=== PATIENT | female | born 1990 | race Caucasian/White ===

== ENCOUNTER 2025-07-06 17:57 | Outpatient (REF) | payer MEDICAID, SELFPAY ==
[2025-07-08 11:47] LABS: Chlamydia Result Negative (Negative); GC Result Negative (Negative)
== END 2025-07-06 17:58 | disposition home or self-care (01) ==
LOC: LBN 17:57
PROVIDERS: Visit Provider Advanced Practice Midwife
DX: Z87.440 Personal history of urinary (tract) infections (principal); Z3A.01 Less than 8 weeks gestation of pregnancy; R30.0 Dysuria; R10.A1 Flank pain, right side
CPT/HCPCS: 87077; 87491; 87591; 87086; 87186; 87480; 87510; 87660

== ENCOUNTER 2025-07-07 15:40 | Inpatient (IN) | payer MEDICAID, SELFPAY ==
[2025-07-07 15:42] VITALS: BP 93/58; PULSE 90; RESP 16; TEMP 36.4; O2SAT 97
[2025-07-07 16:09] LABS: Abs Immature Grans 0.04 10^3/uL (0.0-0.06); HCT 35.1 % (36.0-46.0); HGB 11.8 g/dL (11.2-15.7); Immature Grans % 0.3 %; MCH 29.4 pg (27.0-33.0); MCHC 33.6 % (32.0-36.0); MCV 87 fL (80-95); MPV 10.7 fL (8.0-11.0); Platelet Count 167 10^3/uL (130-400); RBC 4.02 10^6/uL (3.93-5.22); RDW 11.9 % (11.7-14.6); RDW-SD 38.2 fL; WBC 12.30 10^3/uL (4.4-10.8)
[2025-07-07 16:14] VITALS: BP 93/58; PULSE 90; RESP 16; TEMP 36.7; O2SAT 97
--- NOTE | 2025-07-07 16:49 | W.PM.HP.N ---
Date of service: 07/07/25 Time of Service: 16:49 Assessment and Plan Assessment and plan (1) Right flank pain: Status: Acute Assessment and plan: CBC with WBC 12,000, renal US in a.m. Tylenol PRN pain and fever (2) : Status: Acute Assessment and plan: [facility] up care at [facility] (3) Pyelonephritis: Status: Acute Assessment and plan: Admit to center. Per consult with Dr Crocker., Will start ceftriaxone 1 gm IV Q 24 hours. Vital signs Q4 hours. (4) History of drug abuse in remission: Status: Acute Assessment and plan: Due to Kratom dependence. treated with Suboxone at [facility] in [place]. Suboxone 12 mg dose for tomorrow morning ordered History of Present Illness History of Present Illness Chief Complaint: riight flank pain, dysuria, fever Narrative: Lien has bene experiencing dysuria, fever and right flank pain for 3 days. She was seen at [place] urgent care and urinalysis was neg. urine culture sent and was pending. A second urinalysis at [facility] yesterday showed trace of blood. VPS pos for BV and pam and Macrobid was prescribed. preliminary urine culture was pos for e.coli and sensitivity pending. Lien was called by urgent care at [place] and told that urine culture was pos for e.coli and is sensitive to macrobid. She was instructed to call with fever. I called her this afternoon and she reported that she has been taking her temperature at home and taking tylenol PRN. She reports a fever this morning of 103.5 and 100.5 after taking tylenol. She was instructed to test for covid and that was neg. PFSH All Active Problems (Updated 07/07/25 @ 17:02 by Rosa Marquez CNM) Pyelonephritis (Acute) Hematuria (Acute) Right flank pain (Acute) Dysuria (Acute) History of drug abuse in remission (Acute) Suboxone treatment through [facility] Generalized anxiety disorder (Acute) Nicotine dependence (Acute) Marijuana use during (Acute) (Acute) Medical History (Updated 07/07/25 @ 17:02 by Rosa Marquez CNM) History of chronic urinary tract infection Benzodiazepine abuse in remission Chronic insomnia Opioid use disorder Depression Surgical History (Updated 03/15/25 @ 15:10 by Toshia Rodriguez RN) H/O removal of cyst From tailbone 2016 H/O gastric bypass 05/2024 Family History (Updated 06/10/25 @ 16:27 by Jenny Gonzalez) Other Heart disease Social History (Updated 06/10/25 @ 16:26 by Jenny Gonzalez) Smoking/Tobacco Use Status: Current every day Second Hand Exposure: Yes Smoking risk assessment performed?: Yes Substance use type: marijuana Household members: spouse and children Housing: house Sexually active: Yes Do you think of yourself as: straight/heterosexual Current gender identity: female What is your relationship status?: Panel score (0-1 are the most socially isolated patients): 1 What type of physical activity do you participate in: none Seatbelt use: always Do you feel safe at home: Yes Female Reproductive History Menstrual control method: none History History 3 Para 2 Hx # Term Pregnancies 2 Multiple births 0 Hx # Pregnancies 0 Ectopic pregnancies 0 AB induced 0 Hx Number of Living Children 2 AB spontaneous 1 Past Pregnancies Del. Date GA/Weeks # Preg Succ Route Wgt Sex Labor Lgth Anesthesia Location Prov Complic 10/23/10 41 No Yes vaginal 6 lb 14 oz Female 10 hours 07/26/20 38 No Yes vaginal 8 lb Male 10 hours Meds Allergies and Home Medications Allergies Allergy/AdvReac Type Severity Reaction Status Date / Time No Known Drug Allergies AdvReac Other (See Unverified 07/01/25 15:13 Comment) NSAIDS (Non-Steroidal AdvReac GI Bleeding Verified 07/07/25 15:54 Anti-Inflamma Home Medications Medication Instructions Recorded Confirmed Type ondansetron 8 mg disintegrating 8 mg PO Q8H PRN nausea and 07/01/25 07/06/25 Rx tablet vomiting #30 tabs buprenorphine 12 mg-naloxone 3 mg 1 film buccal Q24H 07/06/25 07/06/25 History sublingual film (Suboxone) cranberry extract 500 mg capsule 500 mg PO BID #60 caps 07/06/25 07/06/25 Rx docusate sodium 100 mg capsule 100 mg PO BID #60 caps 07/06/25 07/06/25 Rx (Colace) nitrofurantoin 100 mg PO BID #14 caps 07/06/25 07/06/25 Rx monohydrate/macrocrystals 100 mg capsule (Macrobid) fluconazole 150 mg tablet 150 mg PO DAILY #1 tab 07/07/25 Rx metronidazole 500 mg tablet 500 mg PO BID #14 tabs 07/07/25 Rx Exam Narrative Exam Narrative: afebrile Const General: cooperative and no acute distress Nutritional Appearance: average body habitus Orientation: alert Other: usig a heating pad with good effect right flank Neck Neck: normal visual inspection Thyroid: thyroid normal GI Inspection: normal to inspection Palpation: soft and nontender Back/Spine/Pelvis Back: back tenderness (pos right CVA tenderness) Skin General skin exam: no rashes or lesions noted Extrem General: normal to inspection Psych Appearance: grossly normal Speech and Movement: speech and movement normal Mood: congruent mood Results Labs 07/07/25 15:58 Labs: Laboratory Results - last 24 hr 07/07/25 15:58 WBC 12.30 H RBC 4.02 Hgb 11.8 Hct 35.1 L MCV 87 MCH 29.4 MCHC 33.6 RDW 11.9 Plt Count 167 MPV 10.7 Immature Gran % 0.3 Neutrophils % 83.0 Lymphocytes % 5.7 Monocytes % 10.8 Eosinophils % 0.0 Basophils % 0.2 Nucleated RBC % 0.0 Absolute Neutrophils 10.21 H Absolute Lymphocytes 0.70 L Absolute Monocytes 1.33 H Absolute Eosinophils 0.00 Absolute Basophils 0.02 Last Vital Signs Temp 98.1 F 07/07/25 16:14 Pulse 90 07/07/25 16:14 Resp 16 07/07/25 16:14 BP 93/58 L 07/07/25 16:14 Pulse Ox 97 07/07/25 16:14 Time Spent Time spent with Patient: <40 minutes Time was spent: preparing to see the patient(eg.review tests), obtaining and/or reviewing separately otained hiistory, ordering medications,tests, procedures, referring, communicating with other health nurse wound care, indepentently interpreting results and counseling the patient
[2025-07-07] MEDS: cefTRIAXone 1 GM/50 ML BAG IVPB (17:08)
[2025-07-07] MEDS: metroNIDAZOLE 500 MG TAB PO (20:11)
[2025-07-07] MEDS: Acetaminophen 500 MG TAB 1000 MG PO (20:18)
[2025-07-07 20:24] VITALS: BP 99/65; PULSE 120; RESP 24; TEMP 37.7; O2SAT 98
[2025-07-07] MEDS: Normal Saline Flush 10 ML SYR IVP (20:30)
[2025-07-07] MEDS: hydrOXYzine PAMOATE 25 MG CAP 50 MG PO (21:19)
[2025-07-07] MEDS: Ondansetron O.D.T. 4 MG TABEF 8 MG PO (21:20)
[2025-07-07] MEDS: Nicotine 2 MG LOZG SUC (21:20)
[2025-07-07] MEDS: Lactated Ringers 1,000 ML 100 ML IV (21:20)
[2025-07-07 23:47] VITALS: BP 93/53; PULSE 20; RESP 20; TEMP 37.1; O2SAT 99
[2025-07-08] VITALS (13 sets, daily range): BP systolic 85–102; BP diastolic 43–66; PULSE 80–98; RESP 18–20; TEMP 36.8–39.3; O2SAT 94–100
--- NOTE | 2025-07-08 | DI.US_ITS ---
Exam(s) US RENAL EXAM: US RENAL CLINICAL HISTORY: right flank pain, 9 weeks .. TECHNIQUE: Henry scale, color and spectral Doppler were used. COMPARISON: No exams were available for comparison FINDINGS: Renal size in cm: Right: 12.4. Left: 11.5. Echogenicity: Normal. Hydronephrosis: No. Cyst or mass: No. Nephrolithiasis: No. Other findings: Incidental note is made of an intrauterine gestation. movement was noted during the examination. This was not a complete evaluation. Limited images of the fetus were obtained. This was not performed for anatomy. Bladder:Normal. Ureteral jets: Right: Visualized and unremarkable. Left: Visualized and unremarkable. Prevoid vol:71 cc Postvoid vol:0 cc Renal color flow: Symmetric and within normal limits. IMPRESSION: There is no evidence of hydronephrosis. DATA REPOSITORY:
[2025-07-08] MEDS: Acetaminophen 500 MG TAB 1000 MG PO ×3 (02:33→18:44)
[2025-07-08] MEDS: Nicotine 2 MG LOZG SUC ×6 (06:42→21:22)
[2025-07-08] MEDS: Buprenorphine/Naloxone 12 mg/3 mg FILM 1 EACH SL (06:42)
[2025-07-08] MEDS: Fluconazole 150 MG TAB PO (08:19)
[2025-07-08] MEDS: metroNIDAZOLE 500 MG TAB PO (08:19)
[2025-07-08] MEDS: Lactated Ringers 1,000 ML 150 ML IV ×2 (11:44→19:48)
--- NOTE | 2025-07-08 13:02 | PGE_ITS ---
Date of Service Date of service: 07/08/25 Time of Service: 13:02 Assessment and Plan Assessment and plan (1) Pyelonephritis: Status: Acute Assessment and plan: I discussed the importance of continued observation and antibiotic therapy. Lien verbalized understanding and has arranged for childcare for her children. Will plan continued cephtriaxone administration, tylenol for pain and fever. Nicotine lozenges increased in frequency to 2 hours per patient request. Pain relief with tylenol and vistaril for sleep tonight PRN. repeat CBC with diff with lactate this evening. We discussed discontinuing the IV fluids at this time unless sh is unable to take PO fluids well and she agrees. (2) : Status: Acute Assessment and plan: Plan reviewed with Dr. Winter who agrees. Care will be assumed at 5 PM by Ines Cai CNM Subjective Subjective Patient reports: no new complaints, still having pain and fever Interval history since last seen: Lien reports that right flank pain has improved but is still present. Renal US shows no evidence of stones or hydronephrosis. She slept fairly well and and her pain was managed well with tylenol and vistaril overnight. She requested nicotine lozenges more frequently than Q 4 hours. She received a 500 cc bolus of LR last night followed by 200cc / hr. infusion. Lien is taking po fluids well. Exam Const General: cooperative Orientation: alert Neck Neck: normal visual inspection Resp Effort & Inspection: normal respiratory effort Auscultation: clear to auscultation bilaterally Cardio Rate: regular rate Rhythm: regular rhythm Heart Sounds: no murmurs Skin Lesions: no lesions Rashes: no rashes Extrem General: normal to inspection Psych Appearance: well kempt Mental Status: mental status grossly normal Speech and Movement: speech and movement normal Mood: congruent mood Affect: labile affect (tearful about concern for her children's care while she is hospitalized. ) Objective Last Vital Signs Temp 102.8 F H 07/08/25 11:35 Pulse 98 H 07/08/25 11:35 Resp 18 07/08/25 07:00 BP 102/66 07/08/25 11:35 Pulse Ox 98 07/08/25 11:35 Laboratory Results - last 24 hr 07/07/25 07/07/25 15:58 16:41 WBC 12.30 H RBC 4.02 Hgb 11.8 Hct 35.1 L MCV 87 MCH 29.4 MCHC 33.6 RDW 11.9 Plt Count 167 MPV 10.7 Immature Gran % 0.3 Neutrophils % 83.0 Lymphocytes % 5.7 Monocytes % 10.8 Eosinophils % 0.0 Basophils % 0.2 Nucleated RBC % 0.0 Absolute Neutrophils 10.21 H Absolute Lymphocytes 0.70 L Absolute Monocytes 1.33 H Absolute Eosinophils 0.00 Absolute Basophils 0.02 COVID-19 Source Cancelled SARS-CoV-2 (PCR) Cancelled Reviewed Pertinent PMH: Yes Objective Narrative Objective Narrative: Most recent temp 102.8 Time Spent with Patient Time Spent with Patient: 25-34 minutes Time was spent: preparing to see the patient(eg.review tests), obtaining and/or reviewing separately otained hiistory, ordering medications,tests, procedures, referring, communicating with other health patient centered care specialist, indepentently interpreting results and counseling the patient
[2025-07-08] MEDS: cefTRIAXone 1 GM/50 ML BAG IVPB (16:00)
[2025-07-08 17:33] LABS: Abs Immature Grans 0.03 10^3/uL (0.0-0.06); HCT 35.5 % (36.0-46.0); HGB 12.0 g/dL (11.2-15.7); Immature Grans % 0.3 %; MCH 29.6 pg (27.0-33.0); MCHC 33.8 % (32.0-36.0); MCV 88 fL (80-95); MPV 10.7 fL (8.0-11.0); Platelet Count 178 10^3/uL (130-400); RBC 4.05 10^6/uL (3.93-5.22); RDW 12.0 % (11.7-14.6); RDW-SD 39.0 fL; WBC 9.37 10^3/uL (4.4-10.8)
--- NOTE | 2025-07-08 18:54 | W.OBCONSULT ---
Date of service: 07/08/25 Time of Service: 18:54 Assessment and Plan Assessment and plan (1) 9 weeks gestation of : Status: Acute Assessment and plan: 34 yo ( x2) at 9 wks as dated by LMP equal to 8 wk US (NADIR: 02/09/2025) - HD 1 for treatment of pyelonephritis - labs not yet collected - further complicated by h/o gastric bypass, THC use, nicotine use, Suboxone use (h/o Kratom use), anxiety / depression, and now pyelonephritis - Genetic screening / Maternal screening pending - Anatomy US pending - Tdap / flu / COVID / RSV vaccines pending - pending - Contraception planning pending (2) Pyelonephritis affecting : Status: Acute Assessment and plan: Patient had 1g Ceftriaxone last night. While her dysuria has improved and her white count has decreased, she has had multiple fevers throughout the day including recently. On physical assessment in the room, the patient is noted to be clammy; however, patient also has a large hot pack on her back reportedly being used for pain control. We discussed discontinuing the hot pack and replacing it with a cold pack. Given her breaking through on ceftriaxone we would just need her ceftriaxone and switch her over to ampicillin and gentamicin. To decrease the amount of systemic antibiotic exposure, her oral metronidazole will be switched to vaginal metronidazole for the treatment of her BV. We will repeat a CBC as well as a creatinine in the morning. Patient has been urinating throughout the day but urine does appear concentrated and she has had approximately 30 to 50 cc out an hour. We discussed increasing oral intake and running fluids overnight. (3) History of drug abuse in remission: Status: Acute Assessment and plan: Patient reports she currently uses Suboxone; continue current dosing while in-patient (4) Previous gastric bypass affecting in first trimester, antepartum: Status: Acute Assessment and plan: Patient reports full [place] in May of last year. (5) Nicotine dependence: Status: Acute Assessment and plan: Reports well controlled while in-patient on Nicotine lozenges (6) Generalized anxiety disorder: Status: Acute Assessment and plan: Well controlled unmedicated (7) Bacterial vaginosis: Status: Acute Assessment and plan: 0.75% Metrogel 1 rigo full nightly x 5 days History of Present Illness Narrative: 34 yo ( x2) at 9 17 as dated by LMP equal to 8 wk US (NADIR 02/09/2025) consulted to our services for assistance with management of pyelonephritis. Patient presented last night with complaints of right sided flank pain and fevers. Review of Systems All systems reviewed & are unremarkable except as noted in HPI and below PFSH All Active Problems (Updated 07/08/25 @ 19:06 by Tenisha Winter DO) 9 weeks gestation of (Acute) Bacterial vaginosis (Acute) Pyelonephritis affecting (Acute) Previous gastric bypass affecting in first trimester, antepartum (Acute) Pyelonephritis (Acute) Hematuria (Acute) Right flank pain (Acute) Dysuria (Acute) History of drug abuse in remission (Acute) Suboxone treatment through [facility] Generalized anxiety disorder (Acute) Nicotine dependence (Acute) Marijuana use during (Acute) (Acute) Medical History History of chronic urinary tract infection Benzodiazepine abuse in remission Chronic insomnia Opioid use disorder Depression Surgical History H/O removal of cyst From [facility] 2016 H/O gastric bypass 05/2024 Family History Other Heart disease Social History Smoking/Tobacco Use Status: Current every day Second Hand Exposure: Yes Smoking risk assessment performed?: Yes Substance use type: marijuana Household members: spouse and children Housing: house Sexually active: Yes Do you think of yourself as: straight/heterosexual Current gender identity: female What is your relationship status?: Panel score (0-1 are the most socially isolated patients): 1 What type of physical activity do you participate in: none Seatbelt use: always Do you feel safe at home: Yes Female Reproductive History Menstrual control method: none History History 3 Para 2 Hx # Term Pregnancies 2 Multiple births 0 Hx # Pregnancies 0 Ectopic pregnancies 0 AB induced 0 Hx Number of Living Children 2 AB spontaneous 1 Past Pregnancies Del. Date GA/Weeks # Preg Succ Route Wgt Sex Labor Lgth Anesthesia Location Prov Complic 10/23/10 41 No Yes vaginal 6 lb 14 oz Female 10 hours 07/26/20 38 No Yes vaginal 8 lb Male 10 hours Exam Narrative Exam Narrative: General: Well nourished female, fatigued Pulm: No overt respiratory distress Abd: soft, non-distended, non-tender; no flank tenderness Ext: No swelling Psych: Appropriate, cooperative Results Last Vital Signs Temp 100.2 F H 07/08/25 18:44 Pulse 90 07/08/25 17:30 Resp 20 07/08/25 16:06 BP 99/63 L 07/08/25 17:30 Pulse Ox 98 07/08/25 17:30 Labs 07/08/25 17:19 07/08/25 22:04 Labs: Laboratory Results - last 24 hr 07/08/25 17:19 WBC 9.37 RBC 4.05 Hgb 12.0 Hct 35.5 L MCV 88 MCH 29.6 MCHC 33.8 RDW 12.0 Plt Count 178 MPV 10.7 Immature Gran % 0.3 Neutrophils % 73.7 Lymphocytes % 14.6 Monocytes % 11.0 Eosinophils % 0.2 Basophils % 0.2 Nucleated RBC % 0.0 Absolute Neutrophils 6.90 H Absolute Lymphocytes 1.37 Absolute Monocytes 1.03 H Absolute Eosinophils 0.02 Absolute Basophils 0.02 VBG Lactate 1.2
[2025-07-08] MEDS: AMPICILLIN SODIUM 2 GM in Normal Saline 100 ML IVPB (20:13)
[2025-07-08] MEDS: Normal Saline Flush 10 ML SYR IVP (20:13)
[2025-07-08] MEDS: hydrOXYzine PAMOATE 25 MG CAP 50 MG PO (21:22)
[2025-07-08] MEDS: METRONIDAZOLE 0.75% VG (22:13)
[2025-07-08] MEDS: GENTAMICIN 180 MG in Normal Saline 100 ML 100 MG IVPB (22:38)
--- NOTE | 2025-07-08 22:47 | W.PM.HP.N ---
PFS All Active Problems (Updated 07/08/25 @ 19:06 by Tenisha Winter DO) 9 weeks gestation of (Acute) Bacterial vaginosis (Acute) Pyelonephritis affecting (Acute) Previous gastric bypass affecting in first trimester, antepartum (Acute) Pyelonephritis (Acute) Hematuria (Acute) Right flank pain (Acute) Dysuria (Acute) History of drug abuse in remission (Acute) Suboxone treatment through [facility] Generalized anxiety disorder (Acute) Nicotine dependence (Acute) Marijuana use during (Acute) (Acute) Medical History History of chronic urinary tract infection Benzodiazepine abuse in remission Chronic insomnia Opioid use disorder Depression Surgical History H/O removal of cyst [facility] H/O gastric bypass 05/2024 Family History Other Heart disease Social History Smoking/Tobacco Use Status: Current every day Second Hand Exposure: Yes Smoking risk assessment performed?: Yes Substance use type: marijuana Household members: spouse and children Housing: house Sexually active: Yes Do you think of yourself as: straight/heterosexual Current gender identity: female What is your relationship status?: Panel score (0-1 are the most socially isolated patients): 1 What type of physical activity do you participate in: none Seatbelt use: always Do you feel safe at home: Yes Female Reproductive History Menstrual control method: none History History 3 Para 2 Hx # Term Pregnancies 2 Multiple births 0 Hx # Pregnancies 0 Ectopic pregnancies 0 AB induced 0 Hx Number of Living Children 2 AB spontaneous 1 Past Pregnancies Del. Date GA/Weeks # Preg Succ Route Wgt Sex Labor Lgth Anesthesia Location Prov Complic 10/23/10 41 No Yes vaginal 6 lb 14 oz Female 10 hours 07/26/20 38 No Yes vaginal 8 lb Male 10 hours Meds Allergies and Home Medications Allergies Allergy/AdvReac Type Severity Reaction Status Date / Time No Known Drug Allergies AdvReac Other (See Unverified 07/01/25 15:13 Comment) NSAIDS (Non-Steroidal AdvReac GI Bleeding Verified 07/07/25 15:54 Anti-Inflamma Home Medications Medication Instructions Recorded Confirmed Type ondansetron 8 mg disintegrating 8 mg PO Q8H PRN nausea and 07/01/25 07/06/25 Rx tablet vomiting #30 tabs buprenorphine 12 mg-naloxone 3 mg 1 film buccal Q24H 07/06/25 07/06/25 History sublingual film (Suboxone) cranberry extract 500 mg capsule 500 mg PO BID #60 caps 07/06/25 07/06/25 Rx docusate sodium 100 mg capsule 100 mg PO BID #60 caps 07/06/25 07/06/25 Rx (Colace) nitrofurantoin 100 mg PO BID #14 caps 07/06/25 07/06/25 Rx monohydrate/macrocrystals 100 mg capsule (Macrobid) fluconazole 150 mg tablet 150 mg PO DAILY #1 tab 07/07/25 Rx metronidazole 500 mg tablet 500 mg PO BID #14 tabs 07/07/25 Rx Results Labs 07/08/25 17:19 07/08/25 22:04 Labs: Laboratory Results - last 24 hr 07/08/25 07/08/25 17:19 22:04 WBC 9.37 RBC 4.05 Hgb 12.0 Hct 35.5 L MCV 88 MCH 29.6 MCHC 33.8 RDW 12.0 Plt Count 178 MPV 10.7 Immature Gran % 0.3 Neutrophils % 73.7 Lymphocytes % 14.6 Monocytes % 11.0 Eosinophils % 0.2 Basophils % 0.2 Nucleated RBC % 0.0 Absolute Neutrophils 6.90 H Absolute Lymphocytes 1.37 Absolute Monocytes 1.03 H Absolute Eosinophils 0.02 Absolute Basophils 0.02 VBG Lactate 1.2 Creatinine 0.6 Est GFR (CKD-EPI 2020) 120.72 Last Vital Signs Temp 98.2 F 07/08/25 20:56 Pulse 80 07/08/25 20:56 Resp 18 07/08/25 20:56 BP 91/54 L 07/08/25 20:56 Pulse Ox 94 07/08/25 20:56
[2025-07-09] VITALS: TEMP 36.6
[2025-07-09] MEDS: Normal Saline Flush 10 ML SYR IVP (02:08)
[2025-07-09] MEDS: AMPICILLIN SODIUM 2 GM in Normal Saline 100 ML IVPB ×3 (02:09→15:30)
[2025-07-09 02:14] VITALS: BP 88/52; TEMP 36.8
[2025-07-09] MEDS: GENTAMICIN 100 MG in Normal Saline 100 ML IVPB ×2 (04:02→16:00)
[2025-07-09] MEDS: Nicotine 2 MG LOZG SUC ×3 (04:08→14:53)
[2025-07-09 05:33] VITALS: BP 99/63; PULSE 85; TEMP 37.1; O2SAT 98
[2025-07-09 06:36] LABS: Abs Immature Grans 0.02 10^3/uL (0.0-0.06); HCT 31.0 % (36.0-46.0); HGB 10.7 g/dL (11.2-15.7); Immature Grans % 0.3 %; MCH 29.7 pg (27.0-33.0); MCHC 34.5 % (32.0-36.0); MCV 86 fL (80-95); MPV 11.0 fL (8.0-11.0); Platelet Count 148 10^3/uL (130-400); RBC 3.60 10^6/uL (3.93-5.22); RDW 12.1 % (11.7-14.6); RDW-SD 38.2 fL; WBC 6.17 10^3/uL (4.4-10.8)
[2025-07-09] MEDS: Buprenorphine/Naloxone 12 mg/3 mg FILM 1 EACH SL (08:24)
[2025-07-09] MEDS: Fluconazole 150 MG TAB PO (08:28)
[2025-07-09] MEDS: METRONIDAZOLE 0.75% VG (08:30)
[2025-07-09] MEDS: Acetaminophen 500 MG TAB 1000 MG PO ×2 (08:33→14:56)
[2025-07-09 08:48] VITALS: BP 95/54; PULSE 89; RESP 16; TEMP 36.9; O2SAT 97
--- NOTE | 2025-07-09 08:50 | W.PM.PROGNOT ---
Date of Service Date of service: 07/09/25 Time of Service: 08:45 Assessment and Plan Assessment and plan (1) Pyelonephritis affecting : Status: Acute Assessment and plan: A: collaborative CNM/medical management, amp/gent orders written by Dr. Winter afebrile for >12 hrs, flank pain slowly diminishing WBC this morning @ 6.17, nml lactate appetite improving, voiding qs, pt in good spirits P: MD likely to discharge pt this afternoon Will begin daily prophylaxis ATB Requested work note through 07/11 (printed & given) Pt has [facility] appt Friday, initial OB appt 07/25 Additional f/up per MD recommendation Subjective Subjective Interval history since last seen: Pt states she feels well this morning, increased appetite, no fever since yesterday afternoon after antibiotics were changed to amp/gent, right flank pain still persists though lower intensity at 4 on scale of 10, controlled with tylenol. Exam Const General: cooperative, healthy appearing, comfortable and no acute distress Nutritional Appearance: average body habitus and well nourished Orientation: alert, awake and oriented x3 Resp Effort & Inspection: normal respiratory effort and able to speak in complete sentences Cardio Rate: regular rate Rhythm: regular rhythm Back/Spine/Pelvis Other: RCVAT is noted Extrem General: normal to inspection and full ROM Psych Mood: congruent mood Affect: normal affect Attitude: cooperative Thought Process: normal Objective Last Vital Signs Temp 98.4 F 07/09/25 08:48 Pulse 89 07/09/25 08:48 Resp 16 07/09/25 08:48 BP 95/54 L 07/09/25 08:48 Pulse Ox 97 07/09/25 08:48 Laboratory Results - last 24 hr 07/08/25 07/08/25 07/09/25 17:19 22:04 05:55 WBC 9.37 6.17 RBC 4.05 3.60 L Hgb 12.0 10.7 L Hct 35.5 L 31.0 L MCV 88 86 MCH 29.6 29.7 MCHC 33.8 34.5 RDW 12.0 12.1 Plt Count 178 148 MPV 10.7 11.0 Immature Gran % 0.3 0.3 Neutrophils % 73.7 72.6 Lymphocytes % 14.6 13.9 Monocytes % 11.0 12.6 Eosinophils % 0.2 0.3 Basophils % 0.2 0.3 Nucleated RBC % 0.0 0.0 Absolute Neutrophils 6.90 H 4.47 Absolute Lymphocytes 1.37 0.86 L Absolute Monocytes 1.03 H 0.78 Absolute Eosinophils 0.02 0.02 Absolute Basophils 0.02 0.02 VBG Lactate 1.2 Creatinine 0.6 0.6 Est GFR (CKD-EPI 2020) 120.72 120.72 Time Spent with Patient Time Spent with Patient: 35-49 minutes Time was spent: preparing to see the patient(eg.review tests), obtaining and/or reviewing separately otained hiistory, referring, communicating with other health pharmacy care coordinator and counseling the patient
--- NOTE | 2025-07-09 13:05 | PGE_ITS ---
Date of Service Date of service: 07/09/25 Time of Service: 13:05 Assessment and Plan Assessment and plan (1) Pyelonephritis affecting : Status: Acute Assessment and plan: 07/08/2025 (Maggy): Patient had 1g Ceftriaxone last night. While her dysuria has improved and her white count has decreased, she has had multiple fevers throughout the day including recently. On physical assessment in the room, the patient is noted to be clammy; however, patient also has a large hot pack on her back reportedly being used for pain control. We discussed discontinuing the hot pack and replacing it with a cold pack. Given her breaking through on ceftriaxone we would just need her ceftriaxone and switch her over to ampicillin and gentamicin. To decrease the amount of systemic antibiotic exposure, her oral metronidazole will be switched to vaginal metronidazole for the treatment of her BV. We will repeat a CBC as well as a creatinine in the morning. Patient has been urinating throughout the day but urine does appear concentrated and she has had approximately 30 to 50 cc out an hour. We discussed increasing oral intake and running fluids overnight. 07/09/2025 (Maggy): Patient exhibits notable improvement since switching from ceftriaxone to ampicillin and gentamicin. Her white count continues to downtrend, she has been afebrile since 6 PM last night, and she physically appears notably improved from yesterday. Patient states this morning that she, did not realize how sick [she] was until [she] felt better today. UOP has been notably improved this AM with well over 100 cc's an hour. Fluids saline locked. I would think d/c at 24 hours afebrile is appropriate. Will send in PO home treatment for 1 week (Augmentin 875 BID x 10 days) with initiation of prophylaxis (500 mg Keflex QD) after this. Subjective Subjective Interval history since last seen: Patient found to be doing well this morning; reports considerable improvement. Exam Narrative Exam Narrative: General: Well-nourished female in no immediate distress Pulmonary: No overt respiratory distress Abdomen: Soft, nontender, nondistended Extremities patient in very good spirits; cooperative no swelling Objective Last Vital Signs Temp 98.4 F 07/09/25 08:48 Pulse 89 07/09/25 08:48 Resp 16 07/09/25 08:48 BP 95/54 L 07/09/25 08:48 Pulse Ox 97 07/09/25 08:48 Laboratory Results - last 24 hr 07/08/25 07/08/25 07/09/25 17:19 22:04 05:55 WBC 9.37 6.17 RBC 4.05 3.60 L Hgb 12.0 10.7 L Hct 35.5 L 31.0 L MCV 88 86 MCH 29.6 29.7 MCHC 33.8 34.5 RDW 12.0 12.1 Plt Count 178 148 MPV 10.7 11.0 Immature Gran % 0.3 0.3 Neutrophils % 73.7 72.6 Lymphocytes % 14.6 13.9 Monocytes % 11.0 12.6 Eosinophils % 0.2 0.3 Basophils % 0.2 0.3 Nucleated RBC % 0.0 0.0 Absolute Neutrophils 6.90 H 4.47 Absolute Lymphocytes 1.37 0.86 L Absolute Monocytes 1.03 H 0.78 Absolute Eosinophils 0.02 0.02 Absolute Basophils 0.02 0.02 VBG Lactate 1.2 Creatinine 0.6 0.6 Est GFR (CKD-EPI 2020) 120.72 120.72 Time Spent with Patient Time Spent with Patient: 35-49 minutes Time was spent: preparing to see the patient(eg.review tests), obtaining and/or reviewing separately otained hiistory, ordering medications,tests, procedures and referring, communicating with other health childcare director
[2025-07-09 16:00] VITALS: BP 102/68; PULSE 65; RESP 67; TEMP 36.6; O2SAT 97
--- NOTE | 2025-07-09 17:25 | NUR.NOTE ---
Nursing Note:VSS, Pt tolerating regular diet. Pt rates pain 2/10. Partner is here to take her home. Gent. Pean just drawn by lab. Dr Brandon going to see pt to discharge soon.
--- NOTE | 2025-07-09 17:29 | DSE_ITS ---
Date of service: 07/09/25 Time of Service: 17:30 DS: Diagnosis Discharge Diagnosis (1) Pyelonephritis affecting : Status: Acute Discharge Plan Disposition Patient Disposition: Home Condition: Improving Discharge Details Reason For Visit: Pyelonephritis Admit Date/Time: 07/07/25 15:40 Admit Provider: Rosa Marquez Attending Provider: Rosa Marquez Primary Care Provider: Unknown,Unknown Hospital Course Hospital Course: Pt admitted for evaluation and parenteral antibiotic treatment of pylonephritis in first trimester , initial response to medication was with improvement but at 24 hours pt spiked a fever again so antibiotics where changed and pt has remained afebrile for 24 hrs, lab indicators show improvement and pt meets criteria for discharge this evening. She will continue management on oral antibiotics and have follow up visits at 7 days post discharge. She will continue care as planned. Home Meds and New Rx's Prescriptions: New amoxicillin-pot clavulanate 875-125 mg tablet 1 tab PO Q12H 10 Days Qty: 20 0RF cephalexin 500 mg capsule 500 mg PO DAILY 90 Days Qty: 90 3RF metronidazole [Vandazole] 0.75 % (37.5mg/5 gram) gel 1 appful vaginal DAILY 5 Days Qty: 70 0RF No Action docusate sodium [Colace] 100 mg capsule 100 mg PO BID Qty: 60 8RF cranberry extract 500 mg capsule 500 mg PO BID Qty: 60 0RF Rx Instructions: administer with meals buprenorphine-naloxone [Suboxone] 12-3 mg film 1 film buccal Q24H ondansetron 8 mg tablet,disintegrating 8 mg PO Q8H PRN (Reason: nausea and vomiting) Qty: 30 5RF Discharge Instructions Stand Alone Forms: Portal Information Activity:: Activity as Tolerated Equipment/Supplies:: No Equipment Needed Diet:: Normal Diet Discharge Orders Discharge Orders: Discharge Order (Routine); Ordered 07/09/25 Ordered By: Cristina Cai OB:DS Summary Contraception Discussed Contraception Discussed: No (undelivered), Status at Discharge Functional status at discharge: independent ambulation Overall status at discharge: patient is progressing back to baseline Mental Status: mental status grossly normal Speech and Movement: speech and movement normal Mood: congruent mood Affect: normal affect and labile affect (tearful about concern for her children's care while she is hospitalized. ) Quality:SDOH Health Related Social Needs: Health related social needs house/econ circumstance lo olivia/isolated Health related social needs details none Health related social needs details: none Exam Physical Exam Vital signs: Temp Pulse Resp BP Pulse Ox 98 F 65 67 H 102/68 97 07/09/25 16:00 07/09/25 16:00 07/09/25 16:00 07/09/25 16:00 07/09/25 16:00 Vital Signs Reviewed: Yes Constitutional Constitutional: no acute distress and average body habitus Respiratory Exam Respiratory Exam: Normal Cardiovascular Exam Cardiovascular Exam: Normal Exam Patient deferred: external exam Extremities Exam Extremity Exam: Normal, Full ROM and Warm to Touch Back/Spine/Pelvis Exam Back Exam: Normal (mild RCVAT noted) Neurological Exam Neurological Exam: Normal Psychiatric Exam Psychiatric Exam: Normal Additional findings Additional findings: 34 yo ( x2) at 9 09/07 as dated by LMP equal to 8 wk US (NADIR 02/09/2025) consulted to our services for assistance with management of pyelonephritis. Patient presented last night with complaints of right sided flank pain and fevers. PFSH All Active Problems (Updated 07/09/25 @ 11:00 by Cristina Cai) 9 weeks gestation of (Acute) Bacterial vaginosis (Acute) Pyelonephritis affecting (Acute) Previous gastric bypass affecting in first trimester, antepartum (Acute) Pyelonephritis (Acute) Hematuria (Acute) Right flank pain (Acute) Dysuria (Acute) History of drug abuse in remission (Acute) Suboxone treatment through [facility] Generalized anxiety disorder (Acute) Nicotine dependence (Acute) Marijuana use during (Acute) (Acute) Medical History History of chronic urinary tract infection Benzodiazepine abuse in remission Chronic insomnia Opioid use disorder Depression Surgical History H/O removal of cyst From tailbone 2016 H/O gastric bypass 05/2024 Family History Other Heart disease Social History Smoking/Tobacco Use Status: Current every day Second Hand Exposure: Yes Smoking risk assessment performed?: Yes Substance use type: marijuana Household members: spouse and children Housing: house Sexually active: Yes Do you think of yourself as: straight/heterosexual Current gender identity: female What is your relationship status?: Panel score (0-1 are the most socially isolated patients): 1 What type of physical activity do you participate in: none Seatbelt use: always Do you feel safe at home: Yes Female Reproductive History Menstrual control method: none History History 3 Para 2 Hx # Term Pregnancies 2 Multiple births 0 Hx # Pregnancies 0 Ectopic pregnancies 0 AB induced 0 Hx Number of Living Children 2 AB spontaneous 1 Past Pregnancies Del. Date GA/Weeks # Preg Succ Route Wgt Sex Labor Lgth Anesth esia Location [facility] 10/23/10 41 No Yes vaginal 6 lb 14 oz Female 10 hours 07/26/20 38 No Yes vaginal 8 lb Male 10 hours DS: Data Vitals/I&O Vitals and I&O: Vital Signs Temperature 98 F 07/09/25 16:00 Temperature Source Oral 07/09/25 16:00 Pulse 65 07/09/25 16:00 Pulse Rhythm Regular 07/09/25 08:48 Respiratory Rate 67 H 07/09/25 16:00 Respiratory Effort Normal 07/07/25 16:14 Respiratory Depth Normal 07/07/25 16:14 Respiratory Pattern Normal 07/07/25 16:14 Blood Pressure 102/68 07/09/25 16:00 Blood Pressure Mean 79 07/09/25 16:00 Pulse Oximetry 97 07/09/25 16:00 Oxygen Delivery Method Room Air 07/07/25 16:14 Oxygen Flow Rate 0 07/07/25 16:14 Pain Level 2 07/09/25 15:56 Intake & Output 07/08/25 07/09/25 07/09/25 23:59 11:59 23:59 Intake Total 445 / 1695 2217.0 / 2217.0 Output Total 1500 / 2500 3000 / 4400 1400 / 4400 Balance -1055 / -805 -783.0 / -2183.0 -1400 / -2183.0 Intake: IV 445 / 1195 927.0 / 927.0 Oral 1290 / 1290 Output: Urine 1500 / 2500 3000 / 4400 1400 / 4400 Other: Urine Color Yellow Yellow Urine Appearance Clear Cloudy Urine Odor None None Strain Urine Result Negative-No Stones/Gravel Mucus Only Negative-No Stones/Gravel Data Completed and Pending Pending Labs at Discharge: 07/07/25 07/07/25 07/08/25 15:58 16:41 17:19 WBC 12.30 H 9.37 RBC 4.02 4.05 Hgb 11.8 12.0 Hct 35.1 L 35.5 L MCV 87 88 MCH 29.4 29.6 MCHC 33.6 33.8 RDW 11.9 12.0 Plt Count 167 178 MPV 10.7 10.7 Immature Gran % 0.3 0.3 Neutrophils % 83.0 73.7 Lymphocytes % 5.7 14.6 Monocytes % 10.8 11.0 Eosinophils % 0.0 0.2 Basophils % 0.2 0.2 Nucleated RBC % 0.0 0.0 Absolute Neutrophils 10.21 H 6.90 H Absolute Lymphocytes 0.70 L 1.37 Absolute Monocytes 1.33 H 1.03 H Absolute Eosinophils 0.00 0.02 Absolute Basophils 0.02 0.02 VBG Lactate 1.2 Creatinine Est GFR (CKD-EPI 2020) Gentamicin Peak Gentamicin Trough Gentamicin Draw Type COVID-19 Source Cancelled SARS-CoV-2 (PCR) Cancelled 07/08/25 07/09/25 07/09/25 22:04 05:55 17:15 WBC 6.17 RBC 3.60 L Hgb 10.7 L Hct 31.0 L MCV 86 MCH 29.7 MCHC 34.5 RDW 12.1 Plt Count 148 MPV 11.0 Immature Gran % 0.3 Neutrophils % 72.6 Lymphocytes % 13.9 Monocytes % 12.6 Eosinophils % 0.3 Basophils % 0.3 Nucleated RBC % 0.0 Absolute Neutrophils 4.47 Absolute Lymphocytes 0.86 L Absolute Monocytes 0.78 Absolute Eosinophils 0.02 Absolute Basophils 0.02 VBG Lactate Creatinine 0.6 0.6 Est GFR (CKD-EPI 2020) 120.72 120.72 Gentamicin Peak Pending Gentamicin Trough Gentamicin Draw Type Pending COVID-19 Source SARS-CoV-2 (PCR) 07/09/25 19:00 WBC RBC Hgb Hct MCV MCH MCHC RDW Plt Count MPV Immature Gran % Neutrophils % Lymphocytes % Monocytes % Eosinophils % Basophils % Nucleated RBC % Absolute Neutrophils Absolute Lymphocytes Absolute Monocytes Absolute Eosinophils Absolute Basophils VBG Lactate Creatinine Est GFR (CKD-EPI 2020) Gentamicin Peak Gentamicin Trough Pending Gentamicin Draw Type Pending COVID-19 Source SARS-CoV-2 (PCR)
--- NOTE | 2025-07-09 18:27 | NUR.NOTE ---
Nursing Note: reviewed meds sent to pharmacy and follow up appointment to be made on Friday. IV removed tip intact and pt tolerated well. Pt denied questions. Discharged ambulatory with Partner.
[2025-07-10 16:57] LABS: Gentamicin Peak 3.7 ug/mL (5.0-12.0); Type of Draw Not Given
== END 2025-07-09 18:28 | disposition home or self-care (01) | DRG 832 ==
PROVIDERS: Obstetrics & Gynecology; Admitting Provider Advanced Practice Midwife; Visit Provider Advanced Practice Midwife
DX: O23.01 Infections of kidney in pregnancy, first trimester (principal); O99.321 Drug use complicating pregnancy, first trimester; F19.21 Other psychoactive substance dependence, in remission; F13.11 Sedative, hypnotic or anxiolytic abuse, in remission; F32.A Depression, unspecified; F17.210 Nicotine dependence, cigarettes, uncomplicated; F41.1 Generalized anxiety disorder; O99.841 Bariatric surgery status complicating pregnancy, first trimester; O99.341 Other mental disorders complicating pregnancy, first trimester; R10.A1 Flank pain, right side; O99.331 Smoking (tobacco) complicating pregnancy, first trimester; F12.90 Cannabis use, unspecified, uncomplicated; O23.591 Infection of other part of genital tract in pregnancy, first trimester; B96.20 Unspecified Escherichia coli [E. coli] as the cause of diseases classified elsewhere
CPT/HCPCS: 36415; 76770; 80170; 87635; 96360; 96361; 96365; 96366; 82565; 83605; 85025; 87081; G0378; J0290; J0696; J1580

== ENCOUNTER 2025-07-25 03:57 | Outpatient (CLI) | payer MEDICAID, SELFPAY ==
[2025-07-25 15:37] LABS: Abs Immature Grans 0.02 10^3/uL (0.0-0.06); HCT 33.8 % (36.0-46.0); HGB 11.5 g/dL (11.2-15.7); Immature Grans % 0.3 %; MCH 30.3 pg (27.0-33.0); MCHC 34.0 % (32.0-36.0); MCV 89 fL (80-95); MPV 10.1 fL (8.0-11.0); Platelet Count 229 10^3/uL (130-400); RBC 3.80 10^6/uL (3.93-5.22); RDW 12.9 % (11.7-14.6); RDW-SD 41.9 fL; WBC 7.48 10^3/uL (4.4-10.8)
[2025-07-25 23:56] LABS: HIV-1/2 Ag & Ab Screen Negative (Negative)
[2025-07-25 23:57] LABS: Hepatitis C Ab w Rflx HCV PCR Negative (Negative)
[2025-07-26 10:44] LABS: Rubella IgG Ab (UVM) Negative (See Note)
[2025-07-29 16:54] LABS: Syphilis IgG w/Reflex Nonreactive (Nonreactive)
== END 2025-07-25 03:58 | disposition home or self-care (01) ==
LOC: LBO 03:57
PROVIDERS: Visit Provider Advanced Practice Midwife
DX: Z34.91 Encounter for supervision of normal pregnancy, unspecified, first trimester (principal)
CPT/HCPCS: 36415; 81220; 81222; 86787; 86803; 86850; 86900; 86901; 87340; 87389; 85025; 86762; 86780

== ENCOUNTER 2025-07-25 14:35 | Outpatient (REF) | payer MEDICAID, SELFPAY ==
--- NOTE | 2025-07-25 14:30 | PAPFT_PTH ---
PATIENT: Christina Curtis LOC: [facility] U#:[id number] AGE/SX: 34/F ROOM: RE07/25/[address]: Rosa Marquez : 1990 BED: DIS: 07/25/2025 SPEC #: [id number] RECD: 07/25/25 18:08 STATUS: [facility] REQ #: [id number] [place]: 07/25/25 14:[address]: Rosa Marquez DEPT: [facility] Cytology RECD BY: Raquel Riggs ENTERED: 07/25/25 18:08 SP TYPE: PAPFT OTHR DR: Unknown,Unknown Tissues: 1 - CX/ENDOCX FOR PAP SMEARS Procedures: PAP THIN PREP/UVM Screening HPV DNA PROBE Comments: (HPV 16 & 18/45) (CHLAMYDIA/GC)
[2025-07-25 17:36] LABS: Cannabinoids THC Positive (Negative); Fentanyl Scr w/Rflx to Conf, U Negative (Negative)
[2025-07-26 12:48] LABS: Chlamydia Result Negative (Negative); GC Result Negative (Negative)
== END 2025-07-25 14:36 | disposition home or self-care (01) ==
LOC: LBN 14:35
PROVIDERS: Visit Provider Advanced Practice Midwife
DX: N76.0 Acute vaginitis; B96.89 Other specified bacterial agents as the cause of diseases classified elsewhere; Z12.4 Encounter for screening for malignant neoplasm of cervix; Z34.91 Encounter for supervision of normal pregnancy, unspecified, first trimester
CPT/HCPCS: 80307; 80348; 87491; 87591; 88142; 87086; 87480; 87510; 87624; 87660

== ENCOUNTER 2025-08-24 13:15 | Outpatient (CLI) | payer MEDICAID, SELFPAY ==
[2025-08-24 14:17] LABS: Vitamin D 25 Total 57 ng/mL (30-100)
[2025-08-24 14:34] LABS: Calcium 8.6 mg/dL (8.3-10.6)
[2025-08-24 14:38] LABS: Iron 111 ug/dL (50-170)
[2025-08-24 14:39] LABS: Vitamin B12 234 pg/mL (211-911)
[2025-08-24 14:40] LABS: Ferritin 74 ng/mL (7-271); Folate 9.5 ng/mL (>5.38)
[2025-08-27 02:29] LABS: Thiamine (Vitamin B1), WB 71 nmol/L (70-180)
== END 2025-08-24 13:16 | disposition home or self-care (01) ==
LOC: LBO 13:16
PROVIDERS: Visit Provider Advanced Practice Midwife
DX: O99.841 Bariatric surgery status complicating pregnancy, first trimester (principal); Z3A.01 Less than 8 weeks gestation of pregnancy
CPT/HCPCS: 36415; 82306; 82310; 82607; 82728; 82746; 83540; 84425

== ENCOUNTER 2025-08-24 14:21 | Outpatient (REF) | payer MEDICAID, SELFPAY ==
[2025-08-24 16:26] LABS: Cannabinoids THC Positive (Negative); Fentanyl Scr w/Rflx to Conf, U Negative (Negative)
== END 2025-08-24 14:22 | disposition home or self-care (01) ==
LOC: LBN 14:21
PROVIDERS: Visit Provider Advanced Practice Midwife
DX: F19.11 Other psychoactive substance abuse, in remission (principal)
CPT/HCPCS: 80307; 80348